=== PATIENT | male | born 1960 | race Caucasian/White ===

== ENCOUNTER 2021-10-01 06:27 | Day surgery (SDC) | payer MEDICAID ==
[~2021-10-01 06:27] MED LIST: Dextrose 5%-0.45% NaCl 1,000 ML IV SCH; Sodium Chloride 0.9% 10 ML Syringe FLUSH PRN; Sodium Chloride 0.9% 10 ML Syringe FLUSH SCH
[2021-10-01] MEDS ORDERED: fentaNYL 100 MCG/2 ML SDV IV ONE (06:28)
[2021-10-01] MEDS ORDERED: Midazolam 1 MG/ML 2 ML SDV IV ONE (06:28)
[2021-10-01] MEDS ORDERED: Dextrose 5% in Water 1,000 ML IV SCH (06:30)
== END 2021-10-01 09:52 | disposition home or self-care (01) ==
LOC: DL.ENDO 06:27
PROVIDERS: ATTEND Internal Medicine Gastroenterology
DX: K21.9 Gastro-esophageal reflux disease without esophagitis (principal); D64.9 Anemia, unspecified; E11.9 Type 2 diabetes mellitus without complications; E78.5 Hyperlipidemia, unspecified; E66.09 Other obesity due to excess calories; K57.30 Diverticulosis of large intestine without perforation or abscess without bleeding; M19.90 Unspecified osteoarthritis, unspecified site; Z98.890 Other specified postprocedural states; Z68.30 Body mass index [BMI] 30.0-30.9, adult; Z79.84 Long term (current) use of oral hypoglycemic drugs; Z79.899 Other long term (current) drug therapy
CPT/HCPCS: 00731; 87077; J2250; J3010; J7042

== ENCOUNTER 2022-01-05 07:32 | Emergency (ER) | payer MEDICAID ==
[2022-01-05] MEDS ORDERED: Amoxicillin/Clavulanate K 875-125 MG Tab PO ONE ×2 (07:33→09:01)
[2022-01-05] MEDS ORDERED: Azithromycin 250 MG Tab PO ONE (09:01)
[2022-01-05] MEDS ORDERED: Amoxicillin/Clavulanate K 875-125 MG Tab ONE ×2 (09:40→09:59)
[2022-01-05] MEDS ORDERED: Azithromycin 250 MG Tab ONE (09:59)
== END 2022-01-05 10:05 | disposition home or self-care (01) ==
LOC: DL.ED 07:32
DX: U07.1 COVID-19 (principal); J12.82 Pneumonia due to coronavirus disease 2019; E78.00 Pure hypercholesterolemia, unspecified; E11.9 Type 2 diabetes mellitus without complications; Z86.16 Personal history of COVID-19; Z79.899 Other long term (current) drug therapy
CPT/HCPCS: 71046; 99283; A9270